=== PATIENT | female | born 1990 | race American Indian/Alaskan Native ===

== ENCOUNTER 2021-03-17 05:10 | Emergency (ER) | payer OTHER ==
[2021-03-17] MEDS ORDERED: dexAMETHasone 4 MG/ML VIAL IM ONE (07:31)
[2021-03-17] MEDS ORDERED: HYDROcodone/ACETAMINOPHEN 5-325 MG TAB PO ONE (07:33)
[2021-03-17] MEDS ORDERED: AMOXICILLIN 500 MG CAP PO ONE (07:34)
--- NOTE | 2021-03-17 07:35 | Emergency Department Report ---
Minor Respiratory - HPI Chief Complaint: Sore Throat Stated Complaint: TONSIL SWOLLEN AND PAINFUL Time Seen by Provider: 03/17/21 07:23 Duration: 2 Days Pain Location: Throat Severity: moderate Minor Respiratory: Yes Sore Throat, Yes Able to Tolerate Fluids, Yes Fever, No Rhinorrhea, No Ear Pain, No Cough, No Sick Contacts, No Hemoptysis, No Chest Pain, No Shortness of Breath Other History: Patient is a 30-year-old female that comes to the ER complaining of sore throat. She has no known ill contacts. She states that it started yesterday. She states that she has taken [id number] pain medication with no relief. She has not seen her PCP. Patient denies chest pain or shortness of breath. She states that she has had chills but she did not take her temperature at home. It was mildly elevated in triage. Strep as ordered by RN noted to be negative. However, patient needs treated for exudative pharyngitis ED Review of Systems ROS: Stated complaint: TONSIL SWOLLEN AND PAINFUL Other details as noted in HPI Comment: All other systems reviewed and negative ED Past Medical Hx - Past Medical History Previous Medical History?: No - Surgical History Past Surgical History?: No - Family History Family history: no significant - Social History Smoking Status: Never Smoker Substance Use Type: Alcohol - Medications Home Medications: Home Medications Medication Instructions Recorded Confirmed Last Taken Type Amoxicillin [Trimox CAP] 500 mg PO TID #30 capsule 03/17/21 Unknown Rx Minor Respiratory Exam - Exam General: Vital signs noted. No distress. Alert and acting appropriately. HEENT: Yes Pharyngeal Erythema, Yes Pharyngeal Exudates, Yes Moist Mucous Membranes, No Rhinorrhea, No Conjuctival Injection, No Frontal Tenderness, No Maxillary Tenderness Ear: Neither TM Bulge, Neither TM Erythema, Neither EAC Pain, Neither EAC Discharge Neck: Yes Supple, No Adenopathy Lungs: Yes Good Air Exchange, No Wheezes, No Ronchi, No Stridor, No Cough, No Labored Respirations, No Retractions, No Use of Accessory Muscles, No Other Abnormal Lung Sounds Heart: Yes Regular, No Murmur Abdomen: Yes Normal Bowel Sounds, No Tenderness, No Peritoneal Signs Skin: No Rash, No Edema Neurologic: Alert and oriented, no deficits. Musculoskeletal: Unremarkable. ED Course Vital Signs 03/17/21 05:15 Temperature 99.7 F H Pulse Rate 110 H Respiratory 19 Rate Blood Pressure 133/88 [Right] O2 Sat by Pulse 99 Oximetry ED Medical Decision Making - Medical Decision Making Lab Results 03/17/21 Range/Units Unknown Group A Strep Rapid Negative (Negative) Strep noted to be negative. Patient is controlling secretions. She is able to take p.o. There is no abscess. No trismus. No Ludewig's. Vital Signs 03/17/21 03/17/21 05:15 09:14 Temperature 99.7 F H 100.5 F H Pulse Rate 110 H 100 H Respiratory 19 18 Rate Blood Pressure 133/88 140/96 [Right] O2 Sat by Pulse 99 97 Oximetry Patient was medicated in the ER and on final discharge her heart rate was 90 per provider. Her temperature was 99. RN asked to document these. Patient was given Decadron and antibiotics while here in the emergency room: Along with pain medication and antipyretic. Patient then discharged to home after monitoring. On discharge she is neurologically intact. Taking p.o. fluids. Reporting that she feels better. Patient understands discharge plan of care including medications, follow-up, treatment of her pain and good handwashing techniques to prevent spread. I have told her to get a new toothbrush and not share anything with family members so that they would not get ill. She verbalizes understanding. - Differential Diagnosis Rule out strep pharyngitis Critical care attestation.: If time is entered above; I have spent that time in minutes in the direct care of this critically ill patient, excluding procedure time. ED Disposition Clinical Impression: Exudative pharyngitis Disposition: TO HOME OR SELFCARE Is pt being admited?: No Does the pt Need Aspirin: No Condition: Stable Instructions: Sore Throat Additional Instructions: MEDS ORDERED TODAY FOLLOW UP WITH PCP ON SATURDAY TO BE SURE YOU ARE GETTING BETTER REFERRAL BELOW STAY WELL HYDRATED WITH WATER MOTRIN OR TYLENOL FOR PAIN OR FEVER GOOD HANDWASHING Prescriptions: Amoxicillin [Trimox CAP] 500 mg PO TID #30 capsule Referrals: ROJAS PINTO MD [Staff Physician] - 3-5 Days Time of Disposition: 07:34
[2021-03-17] MEDS ORDERED: CLINDAMYCIN 150 MG/ML 2 ML VIAL IM SCH (08:00)
[2021-03-17 09:15] VITALS: BP 140/96
== END 2021-03-17 09:15 | disposition home or self-care (01) ==
LOC: ED 05:10
DX: J02.9 Acute pharyngitis, unspecified (principal); Z79.899 Other long term (current) drug therapy; Z88.8 Allergy status to other drugs, medicaments and biological substances; Z91.010 Allergy to peanuts
CPT/HCPCS: 87116; 87430; 96372; 99283; J1100